=== PATIENT | female | born 1985 | race Caucasian/White ===

== ENCOUNTER 2016-08-29 16:21 | Emergency (ER) | payer MEDICAID ==
[~2016-08-29] VITALS: Ht 165.1 cm; Wt 69.9 kg
[2016-08-29 16:35] VITALS: BP 118/77
[2016-08-29] MEDS ORDERED: ONDANSETRON ODT 4 MG TAB.RAPDIS PO ONE (17:30)
--- NOTE | 2016-08-29 17:34 | PHYS DOC ---
General Chief Complaint: DENTAL PROBLEM Stated Complaint: DENTAL PAIN/BLEEDING Time Seen by MD: 16:39 Source: patient Exam Limitations: no limitations Problems: History of Present Illness Initial Comments Pt is 30/F to ED c/o bleeding gums. Pt reports she had two upper molars removed yesterday. Denies pain, she has had some right facial swelling which was predicted by dentist. No fever/chills/ MORRISON/diaphoresis/malaise, pt admittedly has been nearly constantly "feeling" the right extraction area with her tongue. She has noticed some oozing blood, she called dentist today to report her symptoms and was reassured everything normal. This afternoon she has had some mild nausea no emesis, she feels could be due to swallowing blood. No other c/o, ED VSS. Pt very wary to try new meds due to numerous drug sensitivities. Timing/Duration: yesterday Severity: mild Location: dental Prearrival Treatment: no prearrival treatment Modifying Factors: improves with other Associated Symptoms: other Allergies: Coded Allergies: Penicillins (Verified Allergy, Unknown, 08/29/16) Sulfa (Sulfonamide Antibiotics) (Verified Allergy, Unknown, 08/29/16) amoxicillin (Verified Allergy, Unknown, 08/29/16) azithromycin (Verified Allergy, Unknown, 08/29/16) ciprofloxacin (Verified Allergy, Unknown, 08/29/16) clindamycin (Verified Allergy, Unknown, 08/29/16) nitrofurantoin (Verified Allergy, Unknown, 08/29/16) Past Medical History Medical History: no pertinent history Surgical History: noncontributory Social History Smoker: non-smoker Alcohol: none Drugs: none Constitutional: denies chills, denies diaphoresis, denies fever, denies malaise Eyes: denies blindness, denies blurred vision, denies drainage, denies decreased acuity Ears: denies dizziness, denies pain, denies tinnitus Nose: denies clots, denies congestion, denies epistaxis Mouth: see HPI, denies pain, denies purulent discharge Throat: denies pain, denies swelling, denies neck stiffness, denies hoarse, denies painful swallowing Respiratory: denies cough, denies shortness of breath, denies wheezing Cardiovascular: denies chest pain, denies palpitations, denies syncope Gastrointestinal: denies abdominal pain, denies constipation, denies diarrhea, nausea, denies vomiting Musculoskeletal: denies back pain, denies joint swelling, denies neck pain Neurological: denies headache, denies numbness, denies paresthesia Hematologic/Lymphatic: denies blood clots, denies easy bleeding, denies easy bruising Physical Exam General Appearance: WD/WN, no apparent distress Eyes: bilateral eye normal inspection, bilateral eye PERRL, bilateral eye EOMI Ears: bilateral ear auricle normal, bilateral ear canal normal, bilateral ear TM normal Nose: normal inspection Mouth/Throat: other (slight oozing from b/l extractions no active gross bleeding. Mild right facial swelling no erythema. 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 I discussed s/s to monitor, discussed indications to return to ED and call dentist. She expressed agreement /understanding with treatment plan, zofran given in ED pt requests ice pack. Departure Time of Disposition: 17:31 Disposition: 01 HOME, SELF-CARE Diagnosis: nausea, POD #1 tooth extraction Condition: STABLE Patient Instructions: Nausea and Vomiting, [id number] Additional Instructions: Ice to swollen area 20 minutes, 4-6 times daily. Continue current meds. Rx: zofran odt Follow up with your doctor Wednesday if no improvement. Return to ED with new or changing symptoms as discussed. DORCAS JO DO August 29, 2016 17:34
[2016-08-29] MEDS ORDERED: ONDA4TAB10 PO (17:35)
== END 2016-08-29 17:44 | disposition home or self-care (01) ==
LOC: ER 16:21
DX: G89.18 Other acute postprocedural pain (principal); K08.89 Other specified disorders of teeth and supporting structures; R11.0 Nausea; Z88.0 Allergy status to penicillin; Z88.2 Allergy status to sulfonamides; Z88.1 Allergy status to other antibiotic agents; Z88.8 Allergy status to other drugs, medicaments and biological substances
CPT/HCPCS: 99283; Q0162